=== PATIENT | male | born 1995 | race American Indian/Alaskan Native ===

== ENCOUNTER 2024-03-06 17:48 | Emergency (ER) | payer MEDICAID, SELFPAY ==
[2024-03-06 17:48] VITALS: BMI 36.5
[2024-03-06 18:08] VITALS: BP 154/89; PULSE 91; RESP 20; TEMP 37; O2SAT 96
--- NOTE | 2024-03-06 18:32 | XR_ITS ---
Examination: PA lateral chest 2 views Technique: Upright PA lateral chest 2 views Exam date and time: March 06, 2024 1839 hrs. Indications: Chest pain positive for flu virus bodyaches today Findings: Reduced inspiratory effort Normal heart size No pneumonia or pulmonary edema Impression: Poor inspiratory effort chest x-ray
--- NOTE | 2024-03-06 18:32 | EKG_ITS ---
[facility] Test Date: 2024-03-06 Pat Name: SEBASTIEN MARQUEZ Department: Room: - Gender: Male Resource Room Teacher: : 1995 Requested By: Terry Mcclain Order Number: [id number] Reading MD: Terry Mcclain Measurements Intervals [place] Rate: 81 P: 32 VA: 154 QRS: 48 QRSD: 99 T: 23 QT: 359 QTc: 417 Interpretive Statements SINUS RHYTHM POSSIBLE ANTERIOR MYOCARDIAL INFARCTION , PROBABLY OLD [30 ms Q WAVE IN V3/V4, OR R < 0.2 mV IN V4] No previous ECG available for comparison /store/S0/[id number].pdf
--- NOTE | 2024-03-06 18:42 | EDNOTE_ITS ---
<Statement entered by Angela Chan MD - 03/07/24 19:21> As co-signing physician, I was present and available for consult prn. I concur with the plan and care as documented by the midlevel provider. Upper Respiratory Inf. RME/HPI General Chief Complaint: Flu Like Symptoms Stated Complaint: FLU B POS/ BODYACHES Time Seen by Provider: 03/06/24 18:31 Arrival date/time: 03/06/24 17:48 28M with no significant PMH presents to ED with several days of cough, body aches, and CP when coughing to the point of near syncope. Patient tested positive for flu B and has been on Tamiflu from PCP. Limitations: no limitations Related Data Allergies Allergy/AdvReac Type Severity Reaction Status Date / Time NKA* Allergy Uncoded 05/10/10 12:16 Review of Systems Review of Systems Systems Reviewed: All systems reviewed, normal except as documented Constitutional Constitutional: Reports system reviewed and no additional complaints, except as documented, Reports as per HPI, Reports body ache(s), Denies fever(s) and Denies headache(s) ENT Ears, Nose, Mouth, and Throat: Denies disequilibrium and Denies headache(s) Cardiovascular Cardiovascular: Reports system reviewed and no additional complaints, except as documented, Reports as per HPI, Reports chest pain and Denies dyspnea Respiratory Respiratory: Reports system reviewed and no additional complaints, except as documented, Reports as per HPI, Reports cough and Denies dyspnea Gastrointestinal Gastrointestinal: Reports system reviewed and no additional complaints, except as documented, Denies abdominal pain, Denies nausea and Denies vomiting Neurologic Neurologic: Reports system reviewed and no additional complaints, except as documented, Denies confusion, Denies disequilibrium and Denies headache(s) Psychiatric Psychiatric: Denies confusion Past Medical History Social History SMOKING STATUS: Never smoker ED Exam General Limitations: Present no limitations General appearance: Present alert and in no apparent distress Head Head exam: Present atraumatic Eye Eye exam: Present normal appearance, PERRL and EOMI ENT ENT exam: Present normal exam, normal oropharynx and mucous membranes moist Neck Neck exam: Present normal inspection, full ROM and trachea midline Chest Chest inspection: Present normal inspection and symmetric chest wall rise Respiratory Respiratory exam: Present normal lung sounds bilaterally Cardiovascular Cardiovascular exam: Present regular rate, normal rhythm and normal heart sounds Abdominal Exam Abdominal exam: Present soft and normal bowel sounds Extremities Exam Extremities exam: Present normal inspection and full ROM Back Exam Back exam: Present normal inspection and full ROM Neurological Exam Neurological exam: Present alert, oriented X3 and CN II-XII intact Psychiatric Psychiatric exam: Present normal affect and normal mood Skin Skin exam: Present warm, dry, intact and normal color Course Quality Measures none Orders Category Date Time Status EKG (ED ONLY) *Do not use* NOW Care 03/06/24 18:32 Completed EKG (ED Only) Stat Exams 03/06/24 18:32 Draft XR chest 2V Stat Exams 03/06/24 18:32 Completed CBC Stat Lab 03/06/24 18:50 Completed Comprehensive Metabolic Panel Stat Lab 03/06/24 18:50 Completed D-Dimer Stat Lab 03/06/24 18:50 Completed Troponin I Stat Lab 03/06/24 18:50 Completed DiphenhydrAMINE [Benadryl] Med 03/06/24 19:32 Discontinued 25 mg PO X1 ONE Naproxen [Naprosyn] Med 03/06/24 19:32 Discontinued 500 mg PO X1 ONE Vital Signs Vital signs: Vital Signs Temperature 98.6 F 03/06/24 18:08 Pulse Rate 91 03/06/24 18:08 Respiratory Rate 20 03/06/24 18:08 Blood Pressure 154/89 H 03/06/24 18:08 Pulse Oximetry (%) 96 03/06/24 18:08 Oxygen Delivery Method Room Air 03/06/24 18:08 O2 at 96% on RA and WNLs Upper Respiratory Infection MDM Narrative MDM Narrative:: 28M with no significant PMH presents to ED with several days of cough, body aches, and CP when coughing to the point of near syncope. Patient tested positive for flu B and has been on Tamiflu from PCP. Physical exam reveals nasal congestion, but clear lungs. Patient is afebrile, calm, and alert. EKG is NSR. CXR normal. No leukocytosis. Normal trop and D-dimer. Patient data External records reviewed:: None Clinical information provided by:: patient Social determinants that could affect healthcare access:: none Patient has the following chronic illnesses:: none How is presenting disease/condition affected by chronic disease/condition?: no chronic disease Evaluation data The following diagnostics were reviewed and interpreted by me:: lab results, radiology exam(s) and EKG tracing(s) Lab and/or radiology exams considered but not ordered:: ordered Interpretation Summary: above Medications / Prescriptions Medications or Prescriptions considered but not ordered:: not ordered Medication administrations:: Medication Administration History Discontinued Medications Diphenhydramine HCl (Diphenhydramine 25 Mg Capsule) 25 mg PO X1 ONE Stop: 03/06/24 19:33 Last Admin: 03/06/24 19:44 Dose: 25 mg Documented By: SF Naproxen (Naproxen 250 Mg Tablet) 500 mg PO X1 ONE Stop: 03/06/24 19:33 Last Admin: 03/06/24 19:44 Dose: 500 mg Documented By: SF n/a Consultations Consultation(s) initiated? (list below): No Diagnosis Upper Respiratory Differential Diagnosis: upper respiratory infection, croup, otitis media, sinusitis, viral infection, bronchitis, influenza, pharyngitis and other (CAP, PE) Most likely diagnosis given after review of the tests above:: influenza B Admission Indicated Admission indicated?: not indicated Admission Request Was there a request for admission?: No Disposition Plan Disposition Plan: Discharge Discharge Attestation Discharge Attestation: The patient and all family members were given an opportunity to ask questions and understood the discharge instructions. Discharge instructions specifically effects, indications for sooner follow up or return to the emergency department, and the expected course of current diagnosis. Patient condition: Stable Discharge Plan Plan Patient Disposition: HOME (Self Care) Disposition Comment: Stable Prescriptions/Referrals Referrals: Temporary Provider,ED [Physician] - In 1 week Problem List Clinical Impression: Influenza B Patient/Caregiver Discharge Instructions Education Materials: ED Influenza (Adult) Additional Instructions: Please follow-up with PCP within 24-48 hours and return immediately if symptoms worsen. Ibuprofen/Tylenol can be used simultaneously for greater fever/pain control. Benadryl is good for cough, congestion, and sleep. Print Language: Maltese Stand Alone Forms: Patient Portal Info Letter PA/L TACKER Supervising Physician PA/[place] Supervising Physician: Dr. Chan
[2024-03-06 19:13] LABS: Basophils # (Auto) 0.1 Thou/mm3 (0.0-0.2); Basophils % (Auto) 1 % (0-2.5); Eosinophils # (Auto) 0.3 Thou/mm3 (0.0-0.5); Eosinophils % (Auto) 4 % (0-10); Hematocrit 47.7 % (41.0-53.0); Hemoglobin 15.5 g/dL (13.5-16.0); Immature Granulocytes % (Auto) 0 % (0-0); Immature Granulocytes Auto 0.02 Thou/mm3 (0.00-0.00); Lymphocytes # (Auto) 1.8 Thou/mm3 (1.0-4.8); Lymphocytes % (Auto) 29 % (10-50); Mean Corpuscular HGB Conc 32.5 g/dl (31.0-37.0); Mean Corpuscular Hemoglobin 27.9 pg (25.0-35.0); Mean Corpuscular Volume 86 fL (80-100); Monocytes # (Auto) 0.7 Thou/mm3 (0.0-0.8); Monocytes % (Auto) 11 % (0-12); Neutrophils # (Auto) 3.3 Thou/mm3 (1.8-7.7); Neutrophils % (Auto) 54 % (37-80); Nucleated Red Blood Cell % 0 /100 WBC (0); Platelet Count 298 Thou/mm3 (140-440); RDW Standard Deviation 39.8 fL (35.1-43.9); Red Blood Count 5.55 Miln/mm3 (4.50-5.90)
[2024-03-06 19:15] LABS: Alanine Aminotransferase 70 U/L (10-49); Albumin, Serum 5.1 gm/dL (3.5-5.0); Albumin/Globulin Ratio 1.6 (1.2-2.2); Alkaline Phosphatase 102 U/L (46-116); Anion Gap 6 (7-16); Aspartate Amino Transferase 37 U/L (0-34); BUN/Creatinine Ratio 14 Ratio (12-20); Bilirubin,Total 0.2 mg/dL (0.3-1.2); Blood Urea Nitrogen 14 mg/dL (9-23); Calcium 9.3 mg/dL (8.3-10.6); Calcium (Corrected) 9.3 mg/dL (8.5-10.1); Carbon Dioxide 28.9 mMol/L (20.0-31.0); Chloride 104 mMol/L (98-107); Estimated Creatinine Clearance 129.2 mL/min (>60); Globulin 3.1 gm/dL (2.3-3.5); Glucose 101 mg/dL (74-106); Osmolality,Calculated 278 (275-295); Potassium 4.2 mMol/L (3.4-5.1); Sodium 139 mMol/L (136-145); Total Protein 8.2 gm/dL (5.7-8.2); Troponin I < 0.020 ng/mL (0.0-0.045); eGFR > 60 See Note
[2024-03-06 19:29] LABS: D-Dimer 309 ng/mL (<600)
[2024-03-06] MEDS: NAPROXEN 250 MG TABLET 500 MG PO (19:44)
[2024-03-06] MEDS: DiphenhydrAMINE 25 MG CAPSULE PO (19:44)
== END 2024-03-06 20:44 | disposition home or self-care (01) ==
PROVIDERS: Physician Assistant; Emergency Provider Emergency Medicine; PCP Physician Assistant
DX: J10.1 Influenza due to other identified influenza virus with other respiratory manifestations (principal)
CPT/HCPCS: 36415; 71046; 80053; 84484; 85025; 85379; 93005; 99283; A9270

== ENCOUNTER 2024-09-27 19:29 | Emergency (ER) | payer MEDICAID, SELFPAY ==
[2024-09-27 19:34] VITALS: BMI 38.0
[2024-09-27 19:43] VITALS: BP 123/86; PULSE 114; RESP 18; TEMP 37.1; O2SAT 95
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
--- NOTE | 2024-09-27 21:22 | PD.EDWOUND ---
ED Wound/Laceration-RME/HPI General Chief Complaint: Wound/Laceration Stated Complaint: lack to back of head Time Seen by Provider: 09/27/24 19:34 Source: patient and family Arrival date/time: 09/27/24 19:29 This is a case of 29-year-old male with no medical history came in in the emergency room due to scalp laceration and head injury history of present illness started 1 hour prior to arrival in the emergency room when the patient accidentally hit his head on a shovel sustaining a laceration 4 cm on the scalp occipital area patient noted to have some dizziness but no headache no blurring of vision no loss of consciousness no neck pain no other injury noted Limitations: no limitations Related Data Previous Rx's ?Medication ?Instructions ?Recorded cephalexin 500 mg capsule 500 mg PO QID 10 days #40 caps 09/27/24 mupirocin 2 % topical ointment 1 applic topical TID #22 grams 09/27/24 Allergies Allergy/AdvReac Type Severity Reaction Status Date / Time bee venom protein (honey bee) Allergy Verified 09/27/24 19:34 Review of Systems Review of Systems Systems Reviewed: All systems reviewed, normal except as documented Constitutional Constitutional: Reports system reviewed and no additional complaints, except as documented, Reports as per HPI, Denies frequent falls, Denies headache(s) and Denies weakness Eyes Eyes: Denies loss of vision ENT Ears, Nose, Mouth, and Throat: Denies abnormal hearing, Denies disequilibrium, Reports dizziness, Denies headache(s), Denies neck pain and Reports vertigo Cardiovascular Cardiovascular: Reports system reviewed and no additional complaints, except as documented, Reports as per HPI and Denies syncope Respiratory Respiratory: Reports system reviewed and no additional complaints, except as documented and Reports as per HPI Gastrointestinal Gastrointestinal: Reports system reviewed and no additional complaints, except as documented and Reports as per HPI Musculoskeletal Musculoskeletal: Reports system reviewed and no additional complaints, except as documented, Reports as per HPI, Denies abnormal gait, Denies arthralgias, Denies atrophy, Denies back pain, Denies deformity, Denies joint swelling, Denies limited range of motion, Denies loss of height, Denies muscle cramps, Denies muscle weakness, Denies myalgias, Denies neck pain, Denies numbness, Denies radiating pain into limb, Denies stiffness and Denies tingling Integumentary/Breasts Skin/Breast: Reports other (Laceration) Neurologic Neurologic: Reports system reviewed and no additional complaints, except as documented, Reports as per HPI, Denies abnormal gait, Denies abnormal hearing, Denies abnormal movements, Denies abnormal speech, Denies behavioral changes, Denies burning sensations, Denies confusion, Denies convulsions, Denies disequilibrium, Reports dizziness, Denies localized weakness, Denies frequent falls, Denies headache(s), Denies lack of coordination, Denies loss of vision, Denies memory loss, Denies numbness, Denies other visual disturbances, Denies paresthesias, Denies radicular pain, Denies restless legs, Denies seizure-like activity, Denies sensory deficit, Denies syncope, Denies tingling, Denies tremor(s), Reports vertigo and Denies weakness Psychiatric Psychiatric: Denies behavioral changes, Denies confusion and Denies memory loss Past Medical History Social History SMOKING STATUS: Never smoker ED Exam General Limitations: Present no limitations General appearance: Present alert and in no apparent distress; Absent appears intoxicated, anxious, lethargic, obtunded, in distress or obese Head Head exam: Present atraumatic and other (Noted a 4 cm scalp laceration occipital area no crepitation no deformity no redness) Eye Eye exam: Present normal appearance, PERRL, EOMI and other (no pappiledema) ENT ENT exam: Present normal exam, normal oropharynx and mucous membranes moist Neck Neck exam: Present normal inspection, full ROM and trachea midline; Absent tenderness, meningismus, lymphadenopathy or thyromegaly Chest Chest inspection: Present normal inspection and symmetric chest wall rise Respiratory Respiratory exam: Present normal lung sounds bilaterally; Absent respiratory distress, wheezes, stridor, accessory muscle use or prolonged expiratory phase Cardiovascular Cardiovascular exam: Present regular rate, normal rhythm and normal heart sounds; Absent bradycardia, tachycardia, irregular rhythm, systolic murmur or diastolic murmur Abdominal Exam Abdominal exam: Present soft and normal bowel sounds; Absent distention, tenderness, guarding, rebound, rigidity or hyperactive bowel sounds Extremities Exam Extremities exam: Present normal inspection and full ROM Back Exam Back exam: Present normal inspection and full ROM Neurological Exam Neurological exam: Present alert, oriented X3, CN II-XII intact, normal gait, reflexes normal and other (Patient is awake alert oriented x 4 no focal deficit GCS 15/15 steady gait no slurring with speech memory intact no facial droop CN II through XII is normal motor 5/5 sensory +2 reflexes +2 in all extremities); Absent motor sensory deficit Psychiatric Psychiatric exam: Present normal affect and normal mood Skin Skin exam: Present warm, dry, intact, normal color and other (Sustained a 4 cm linear laceration no bone no tendon no muscle injury no foreign body no abscess no cellulitis no discharge minimal bleeding) Course Quality Measures none Orders Category Date Time Status CT head/brain wo con Stat Exams 09/27/24 19:48 Completed HYDROcodone*/APAP 5/325 [[place] 5/325] Med 09/27/24 21:18 Discontinued 1 tab PO X1 ONE cephALEXin [Keflex] Med 09/27/24 21:18 Discontinued 1,000 mg PO X1 ONE Vital Signs Vital signs: Vital Signs Temperature 98.7 F 09/27/24 19:43 Pulse Rate 114 H 09/27/24 19:43 Respiratory Rate 18 09/27/24 19:43 Blood Pressure 123/86 H 09/27/24 19:43 Pulse Oximetry (%) 95 09/27/24 19:43 Oxygen Delivery Method Room Air 09/27/24 19:43 Oxygen saturation 95% in room air PROCEDURES: Laceration Laceration 1: Site: scalp Size (cm): 4 Description: linear Depth: simple, single layer Local Anesthetic: lidocaine 1% Amount of anesthesia used (mL): 4 Pre-repair: irrigated extensively and deep structures intact Skin layer closed with: other ([place]) Number of sutures: 10 Wound / Laceration MDM Narrative MDM Narrative:: This is a case of 29-year-old male with no medical history came in in the emergency room due to scalp laceration and head injury history of present illness started 1 hour prior to arrival in the emergency room when the patient accidentally hit his head on a shovel sustaining a laceration 4 cm on the scalp occipital area patient noted to have some dizziness but no headache no blurring of vision no loss of consciousness no neck pain no other injury noted physical examination patient is awake alert oriented not in distress nontoxic looking patient neurological exam is normal awake alert oriented x 4 no focal deficit GCS 15/15 steady gait CN II to XII is normal motor or sensory reflex were all normal negative Babinski no slurring of speech no facial droop patient neck exam is normal no tenderness ROM intact neurovascular intact patient sustained a 4 cm laceration on the scalp occipital area no crepitation no deformity no redness no swelling no abscess no cellulitis CT scan of the head is normal laceration repair by the use of staple was performed with the patient bleeding controlled no complication noted procedure done via sterile technique and via universal protocol patient will follow up with PCP in 2 days for reevaluation and in 10 days for removal of serene head injury precaution was discussed with the patient and the for any changes of sensorium and the patient is understood very well that they need to return in the emergency room or call 911 they will also monitor for any signs and symptoms and they also know that they need to return in the emergency room immediately patient is stable to be discharged patient was prescribed cephalexin and mupirocin to prevent infection and take Tylenol or Motrin as needed of pain wound care daily advised Patient was discharged with comfortable condition walking with stable gait. Patient verbalized no further complains explained diagnosis and answered patient question. Patient is comfortable with the proposed management plan including the need to follow up with his/her primary care physician and any specialist if applicable Discussed patient for any urgent condition or worsening sx, He/She needed to go to emergency room immediately or call 911. Patient acknowledge the responsibility to follow up as instructed and to monitor her/his symptoms. For any persistence of the symptoms for more than 3-5 days return precaution advised. Discussed the result of the test and was given printed discharge instruction Patient data External records reviewed:: [facility] previous records Clinical information provided by:: patient Social determinants that could affect healthcare access:: none Patient has the following chronic illnesses:: None How is presenting disease/condition affected by chronic disease/condition?: no chronic disease Evaluation data The following diagnostics were reviewed and interpreted by me:: radiology exam(s) Lab and/or radiology exams considered but not ordered:: Reviewed Interpretation Summary: Reviewed Medications / Prescriptions Medications or Prescriptions considered but not ordered:: Given Medication administrations:: Medication Administration History Discontinued Medications Hydrocodone Bitart/Acetaminophen (Hydrocodone/Apap 5/325 Tablet) 1 tab PO X1 ONE Stop: 09/27/24 21:19 Cephalexin HCl (Cephalexin 250 Mg Capsule) 1,000 mg PO X1 ONE Stop: 09/27/24 21:19 Given Consultations Consultation(s) initiated? (list below): No Diagnosis Wound Differential Diagnosis: laceration Most likely diagnosis given after review of the tests above:: Head injury scalp laceration Admission Indicated Admission indicated?: not indicated Explain why admission is indicated or not indicated:: Not indicated Admission Request Was there a request for admission?: No Admission Attestation Admission request attestation: Not indicated Disposition Plan Disposition Plan: Discharge Discharge Attestation Discharge Attestation: The patient and all family members were given an opportunity to ask questions and understood the discharge instructions. Discharge instructions specifically effects, indications for sooner follow up or return to the emergency department, and the expected course of current diagnosis. Patient condition: Stable Discharge Plan Plan Patient Disposition: HOME (Self Care) Patient condition on transfer: Stable Prescriptions/Referrals Prescriptions/Med Rec: New cephalexin 500 mg capsule 500 mg PO QID 10 Days Qty: 40 0RF mupirocin 2 % ointment 1 applic topical TID Qty: 22 0RF Referrals: No Primary/Family,Physician [Primary Care Provider] - In 1 week Problem List Clinical Impression: Head injury, Laceration of scalp Patient/Caregiver Discharge Instructions Education Materials: ED Head Injury (Adult), ED Laceration Scalp Sutures or ... Additional Instructions: Follow-up with your primary care physician in 2 days for reevaluation and wound check and for removal of serene in 10 days for any worsening symptoms or any emergent concern or any changes of sensorium such as headache nausea vomiting dizziness blurring of vision unsteady gait or signs and symptoms of infection fever chills redness swelling discharge from the wound call 911 or go to the nearest emergency room take your medication as directed finish the course of antibiotic keep the wound clean and dry Tylenol or Motrin as needed for pain Print Language: Bengali Stand Alone Forms: Latrice Award Info., Patient Portal Info Letter PA/CAD DESIGN ENGINEER Supervising Physician PA/CAD DESIGN ENGINEER Supervising Physician: dr carnes
[2024-09-27] MEDS: HYDROcodone/APAP 5/325 TABLET 1 TAB PO (21:39)
== END 2024-09-27 21:56 | disposition home or self-care (01) ==
PROVIDERS: Emergency Provider Emergency Medicine
DX: S01.01XA Laceration without foreign body of scalp, initial encounter (principal); W22.8XXA Striking against or struck by other objects, initial encounter
CPT/HCPCS: 12002; 70450; 99284; A9270

== ENCOUNTER 2025-01-09 11:22 | Emergency (ER) | payer MEDICAID, SELFPAY ==
[2025-01-09 11:34] VITALS: BP 135/75; PULSE 94; RESP 17; TEMP 36.4; O2SAT 96; BMI 35.6
--- NOTE | 2025-01-09 11:44 | XR_ITS ---
Examination: Hand, right 3 views Technique: Hand AP, oblique, lateral 3 views Date and time of exam: December, 1114 hours INDICATIONS: Injury to the hand today, fourth digit pain. FINDINGS: Acute fracture ungual tuft tip distal phalanx fourth digit without significant displacement IMPRESSION: Acute fracture ungual tuft tip distal phalanx fourth digit without significant displacement
[2025-01-09] MEDS: DIPHTH,PERTUSS(ACELL),TET VAC 0.5 ML SYR- ADULT IMi (12:03)
[2025-01-09] MEDS: LIDOCAINE HCL 1% 20 ML VIAL INFL (12:04)
[2025-01-09] MEDS: IBUPROFEN TAB 400 MG TABLET 800 MG PO (12:04)
--- NOTE | 2025-01-09 12:06 | EDNOTE_ITS ---
ED Wound/Laceration-RME/HPI General Chief Complaint: Wound/Laceration Stated Complaint: Laceration to right ring finger Time Seen by Provider: 01/09/25 11:44 Arrival date/time: 01/09/25 11:22 29-year-old male presents to the emergency department for complaint of laceration to right ring finger patient reports he was working on his car and injured his finger Limitations: no limitations Related Data Previous Rx's ?Medication ?Instructions ?Recorded mupirocin 2 % topical ointment 1 applic topical TID #2 2 grams 09/27/24 cephalexin 500 mg tablet 500 mg PO TID 7 days #21 tab s 01/09/25 hydrocodone 5 mg-acetaminophen 325 1 tab PO BID PRN pa in #6 tabs 01/09/25 mg tablet ibuprofen 800 mg tablet 800 mg PO TID PRN pain #30 t abs 01/09/25 Allergies Allergy/AdvReac Type Severity Reaction Status Date / Time bee venom protein (honey bee) Allergy Verified 01/09/25 11:26 Review of Systems Review of Systems Systems Reviewed: All systems reviewed, normal except as documented Constitutional Constitutional: Reports system reviewed and no additional complaints, except as documented, Denies fatigue, Denies fever(s) and Denies headache(s) Eyes Eyes: Reports system reviewed and no additional complaints, except as documented ENT Ears, Nose, Mouth, and Throat: Reports system reviewed and no additional complaints, except as documented, Denies dizziness and Denies headache(s) Cardiovascular Cardiovascular: Reports system reviewed and no additional complaints, except as documented, Denies chest pain, Denies dyspnea and Denies dyspnea on exertion Respiratory Respiratory: Reports system reviewed and no additional complaints, except as documented, Denies chest congestion, Denies cough, Denies dyspnea and Denies dyspnea on exertion Gastrointestinal Gastrointestinal: Reports system reviewed and no additional complaints, except as documented, Denies abdominal pain, Denies nausea and Denies vomiting Musculoskeletal Musculoskeletal: Reports system reviewed and no additional complaints, except as documented, Denies abnormal gait, Denies numbness, Denies stiffness and Denies tingling Integumentary/Breasts Skin/Breast: Reports system reviewed and no additional complaints, except as documented, Denies rash and Reports wounds (Laceration finger) Neurologic Neurologic: Reports system reviewed and no additional complaints, except as documented, Denies abnormal gait, Denies dizziness, Denies headache(s), Denies numbness and Denies tingling Psychiatric Psychiatric: Reports system reviewed and no additional complaints, except as documented and Denies anxiety Endocrine Endocrine: Denies fatigue Past Medical History Social History SMOKING STATUS: Never smoker ED Exam General Limitations: Present no limitations General appearance: Present alert and in no apparent distress Head Head exam: Present atraumatic, normocephalic and normal inspection Eye Eye exam: Present normal appearance, PERRL and EOMI ENT ENT exam: Present normal exam, normal oropharynx and mucous membranes moist Neck Neck exam: Present normal inspection, full ROM and trachea midline Chest Chest inspection: Present normal inspection and symmetric chest wall rise Respiratory Respiratory exam: Present normal lung sounds bilaterally Cardiovascular Cardiovascular exam: Present regular rate, normal rhythm and normal heart sounds Abdominal Exam Abdominal exam: Present soft and normal bowel sounds Extremities Exam Extremities exam: Present normal inspection and full ROM Back Exam Back exam: Present normal inspection and full ROM Neurological Exam Neurological exam: Present alert, oriented X3 and CN II-XII intact Psychiatric Psychiatric exam: Present normal affect and normal mood Skin Skin exam: Present warm, dry, intact and normal color Course Quality Measures none Orders Category Date Time Status Set Up Suture Tray STAT Care 01/09/25 11:44 Completed Wound Care NOW Care 01/09/25 11:44 Completed XR hand comp RT min 3V Stat Exams 01/09/25 11:44 Completed Ibuprofen Tab [Motrin Tab] Med 01/09/25 11:45 Discontinued 800 mg PO X1 ONE Lidocaine 1% 20 ml [Xylocaine 1% 20 ML] Med 01/09/25 11:44 Discontinued 20 ml INFL X1 ONE TET,DIP/PERT AC (Adult)-Tdap [Boostrix Adult (Tdap) Med 01/09/25 11:44 Discontinued Vacc] 0.5 ml IMI .ONCE ONE Vital Signs Vital signs: Vital Signs Temperature 97.6 F 01/09/25 11:34 Pulse Rate 94 01/09/25 11:34 Respiratory Rate 17 01/09/25 11:34 Blood Pressure 135/75 H 01/09/25 11:34 Pulse Oximetry (%) 96 01/09/25 11:34 Oxygen Delivery Method Room Air 01/09/25 11:34 O2 saturation 96% on room air within normal limits. PROCEDURES: Laceration Laceration 1: Site: hand Side (If applicable): right Size (cm): 3 Description: irregular Depth: simple, single layer Local Anesthetic: lidocaine 1% Amount of anesthesia used (mL): 10 Pre-repair: wound explored and irrigated extensively Skin layer closed with: nylon Suture size (cm): 5-0 Number of sutures: 6 Technique: simple, interrupted Splint Fabrication: Pre-Fabricated Type: Finger Protector Reason for Splint: Improve Function, Optimal Positioning and Pain Management Circulation Distal to Splint: Yes Movement Distal to Splint: Yes Senation Distal to Splint: Yes Tolerance: Tolerates Well Wound / Laceration MDM Narrative MDM Narrative:: 29-year-old male presents to the emergency department for complaint of laceration to right ring finger patient reports he was working on his car and injured his finger On exam patient is a crush injury to right hand fourth digit Wound irrigated copiously laceration repaired with a total of 6 sutures wound is well-approximated laceration goes through the nail nail is approximated Clinically I suspect patient has fracture which was confirmed by x-ray Patient placed in a finger splint sutures applied patient instructed follow-up with orthopedist soon as possible Sutures to be removed in 10 to 14 days patient be treated with antibiotics Tetanus updated Patient data External records reviewed:: [facility] previous records Clinical information provided by:: patient Social determinants that could affect healthcare access:: none Patient has the following chronic illnesses:: None How is presenting disease/condition affected by chronic disease/condition?: uneffected by Evaluation data The following diagnostics were reviewed and interpreted by me:: radiology exam(s) Lab and/or radiology exams considered but not ordered:: FINDINGS: Acute fracture ungual tuft tip distal phalanx fourth digit without significant displacement IMPRESSION: Acute fracture ungual tuft tip distal phalanx fourth digit without significant displacement Interpretation Summary: Laceration Medications / Prescriptions Medications or Prescriptions considered but not ordered:: Given Medication administrations:: Medication Administration History Discontinued Medications Diphtheria/Tetanus/Acell Pertussis (Diphth,Pertuss(Acell),Tet Vac 0.5 Ml Syr- Adult) 0.5 ml IMi .ONCE ONE Stop: 01/09/25 11:45 Last Admin: 01/09/25 12:03 Dose: 0.5 ml Documented By: GERARD Ibuprofen (Ibuprofen Tab 400 Mg Tablet) 800 mg PO X1 ONE Stop: 01/09/25 11:46 Last Admin: 01/09/25 12:04 Dose: 800 mg Documented By: GERARD Lidocaine HCl (Lidocaine Hcl 1% 20 Ml Vial) 20 ml INFL X1 ONE Stop: 01/09/25 11:45 Last Admin: 01/09/25 12:04 Dose: 20 ml Documented By: GERARD Given Consultations Consultation(s) initiated? (list below): No Diagnosis Wound Differential Diagnosis: laceration, abrasion and avulsion of skin Most likely diagnosis given after review of the tests above:: Aspiration Admission Indicated Admission indicated?: not indicated Admission Request Was there a request for admission?: No Disposition Plan Disposition Plan: Discharge Discharge Attestation Discharge Attestation: The patient and all family members were given an opportunity to ask questions and understood the discharge instructions. Discharge instructions specifically effects, indications for sooner follow up or return to the emergency department, and the expected course of current diagnosis. Patient condition: Stable Discharge Plan Plan Patient Disposition: HOME (Self Care) Discharge Disposition comment: Stable Prescriptions/Referrals Prescriptions/Med Rec: New ibuprofen 800 mg tablet 800 mg PO TID PRN (Reason: pain) Qty: 30 0RF hydrocodone-acetaminophen 5-325 mg tablet 1 tab PO BID MDD 10 PRN (Reason: pain) Qty: 6 0RF cephalexin 500 mg tablet 500 mg PO TID 7 Days Qty: 21 0RF No Action mupirocin 2 % ointment 1 applic topical TID Qty: 22 0RF Problem List Clinical Impression: Laceration of finger of right hand, Fracture of finger of right hand Patient/Caregiver Discharge Instructions Education Materials: [facility] [employer] [facility] Additional Instructions: Please follow up with your primary care doctor in the next 24-48hrs for any worsening symptoms return here immediately Please follow-up with orthopedics as discussed for worsening symptoms or concerns return immediately Please have sutures removed in 10 days Print Language: Mauritian Stand Alone Forms: Latrice Award Info., Work/School Release, Patient Portal Info Letter PA/[place] Supervising Physician TENA/[place] Supervising Physician: Dr. carney
== END 2025-01-09 13:25 | disposition home or self-care (01) ==
LOC: SERX 12:18
PROVIDERS: Emergency Provider Nurse Practitioner Primary Care; PCP Family Medicine
DX: S61.214A Laceration without foreign body of right ring finger without damage to nail, initial encounter (principal); S62.609A Fracture of unspecified phalanx of unspecified finger, initial encounter for closed fracture
CPT/HCPCS: 12002; 73130; 90715; 99284; J3490; A9270